=== PATIENT | male | born 1990 | race Caucasian/White ===

== ENCOUNTER 2020-05-11 10:04 | Inpatient (IN) | payer OTHER ==
[~2020-05-11] VITALS: Ht 177.8 cm; Wt 77.3 kg
[2020-05-11 10:37] LABS: BASOPHILS % (AUTO) 0.3 % (0.0-2.0); EOSINOPHILS % (AUTO) 0.7 % (1.0-6.0); HEMATOCRIT 46.9 % (41-53); HEMOGLOBIN 15.7 g/dL (13.5-17.5); LYMPHOCYTES # (AUTO) 1.7 K/uL (1.0-4.8); MEAN CORPUSCULAR HEMOGLOBIN 28.9 pg (26.0-34.0); MEAN CORPUSCULAR HGB CONC 33.5 G/dL (31.0-37.0); MEAN CORPUSCULAR VOLUME 86 fL (80-100); MONOCYTES # (AUTO) 0.6 K/uL (0.1-1.0); MONOCYTES % (AUTO) 6.8 % (2.0-9.0); NEUTROPHILS # (AUTO) 6.1 K/uL (1.8-7.7); NEUTROPHILS % (AUTO) 72.2 % (40.0-70.0); PLATELET COUNT (AUTO) 210 K/uL (150-450); RED BLOOD CELL COUNT(AUTO) 5.43 MIL/uL (4.50-5.90); RED CELL DISTRIBUTION WIDTH 14.6 % (11.5-14.5)
[2020-05-11 10:50] LABS: COVID AG,FIA SOURCE NASOPHARYNGEAL
[2020-05-11] MEDS ORDERED: 0.9% SODIUM CHLORIDE 10 ML SYRINGE IVP PRN (11:00)
[2020-05-11] MEDS ORDERED: ACETAMINOPHEN 325 MG TABLET PO PRN (11:00)
[2020-05-11] MEDS ORDERED: ONDANSETRON HCL 4 MG/2 ML VIAL IVP PRN (11:00)
[2020-05-11 11:02] LABS: ANION GAP 9 mmol/L (8-16); CALCIUM, TOTAL 9.3 mg/dL (8.8-10.5); CARBON DIOXIDE 31 mmol/L (22-29); CHLORIDE 103 mmol/L (98-107); CREATININE 1.11 mg/dL (0.60-1.30); GLOMERULAR FILTR. RATE CALC > 60 mL/min (>60); GLUCOSE,RANDOM 92 mg/dL (70-110); POTASSIUM 3.2 mmol/L (3.5-5.1); SODIUM SERUM 143 mmol/L (136-145); UREA NITROGEN, BLOOD 14 mg/dL (7-18)
[2020-05-11 11:14] LABS: ALANINE AMINOTRANSFERASE 16 U/L (12-78); ALBUMIN 4.5 g/dL (3.4-5.0); ALKALINE PHOSPHATASE 75 U/L (46-116); ASPARTATE AMINOTRANSFERASE 17 U/L (15-37); BILIRUBIN,TOTAL 0.7 mg/dL (0.1-1.0); TOTAL PROTEIN, SERUM 8.3 g/dL (6.4-8.2)
[2020-05-11] MEDS ORDERED: POTASSIUM CHLORIDE 20 MEQ ER TABLET PO ONE (11:45)
[2020-05-11 12:32] VITALS: BP 130/71
[2020-05-11] MEDS ORDERED: POTASSIUM CHL 10 MEQ/WATER 50 ML IV PRN (13:30)
[2020-05-11] MEDS ORDERED: POTASSIUM CHLORIDE 20 MEQ ER TABLET PO PRN (13:30)
[2020-05-11] MEDS ORDERED: LORazepam 2 MG/ML VIAL IVP PRN (13:30)
[2020-05-11] MEDS ORDERED: ACETAMINOPHEN/CODEINE 300-15 MG TABLET PO PRN (13:30)
[2020-05-11] MEDS ORDERED: DICYCLOMINE HCL 10 MG CAPSULE PO PRN (13:30)
[2020-05-11] MEDS ORDERED: LOPERAMIDE HCL 2 MG CAPSULE PO PRN (13:30)
[2020-05-11] MEDS ORDERED: METOCLOPRAMIDE HCL 5 MG/ML 2 ML VIAL IVP PRN (13:30)
[2020-05-11] MEDS ORDERED: IBUPROFEN 400 MG TABLET PO PRN (14:30)
[2020-05-11 20:26] VITALS: BP 121/92
[2020-05-11] MEDS ORDERED: TEMAZEPAM 15 MG CAPSULE PO SCH (21:00)
[2020-05-12 03:45] VITALS: BP 126/68
== END 2020-05-12 07:00 | disposition left against medical advice (07) | DRG 897 ==
LOC: EMS 10:13 → 6S 11:14
PROVIDERS: ADMIT Internal Medicine; ATTEND Internal Medicine
DX: F13.139 Sedative, hypnotic or anxiolytic abuse with withdrawal, unspecified (principal); E87.6 Hypokalemia; F41.9 Anxiety disorder, unspecified; Z53.29 Procedure and treatment not carried out because of patient's decision for other reasons; Z20.822 Contact with and (suspected) exposure to COVID-19
CPT/HCPCS: 87426; 99285; G0480

== ENCOUNTER 2020-05-12 16:17 | Inpatient (IN) | payer OTHER ==
[~2020-05-12] VITALS: Ht 185.4 cm; Wt 77.3 kg
[2020-05-12] MEDS ORDERED: ACETAMINOPHEN 325 MG TABLET PO PRN ×2 (17:15→18:45)
[2020-05-12 17:23] LABS: AMPHET/METH SCREEN,URINE NEGATIVE (NEGATIVE); BARBITURATE SCREEN, URINE NEGATIVE (NEGATIVE); BENZODIAZEPINES SCREEN,URINE POSITIVE (NEGATIVE); CANNABINOID SCREEN,URINE POSITIVE (NEGATIVE); COCAINE SCREEN,URINE NEGATIVE (NEGATIVE); METHADONE SCREEN, URINE NEGATIVE (NEGATIVE); OPIATE SCREEN,URINE NEGATIVE (NEGATIVE)
[2020-05-12 17:28] LABS: PHENCYCLIDINE SCREEN,URINE NEGATIVE (NEGATIVE)
[2020-05-12 18:32] VITALS: BP 114/87
[2020-05-12] MEDS ORDERED: ALBUTEROL SULFATE 2.5 MG/0.5 ML NEB SOLUTION NEB PRN (18:45)
[2020-05-12] MEDS ORDERED: ONDANSETRON HCL 4 MG/2 ML VIAL IVP PRN (18:45)
[2020-05-12] MEDS ORDERED: 0.9% SODIUM CHLORIDE 10 ML SYRINGE IVP PRN (18:45)
[2020-05-12] MEDS ORDERED: DOCUSATE SODIUM 100 MG CAPSULE PO PRN (18:45)
[2020-05-12] MEDS ORDERED: IPRATROPIUM BROMIDE 0.5 MG/2.5 ML NEB SOLUTION NEB PRN (18:45)
[2020-05-12] MEDS ORDERED: BISACODYL 10 MG RECTAL RECTAL SUPPOSITORY PR PRN (18:45)
[2020-05-12 19:50] VITALS: BP 130/74
[2020-05-12] MEDS: FAMOTIDINE 20 MG TABLET PO SCH (20:18)
[2020-05-13 04:41] VITALS: BP 113/63
[2020-05-13 08:08] VITALS: BP 120/74
[2020-05-13] MEDS: FAMOTIDINE 20 MG TABLET PO SCH (08:18)
[2020-05-13] MEDS ORDERED: MULTIVITAMINS WITH MINERALS, THERAPEUTIC TABLET PO SCH (09:00)
[2020-05-13] MEDS ORDERED: THIAMINE 100 MG TABLET PO SCH (09:00)
[2020-05-13] MEDS ORDERED: FOLIC ACID 1 MG TABLET PO SCH (09:00)
== END 2020-05-13 14:45 | DRG 897 ==
LOC: EMS 16:17 → 6S 17:03
PROVIDERS: ADMIT Internal Medicine; ATTEND Internal Medicine
DX: F13.239 Sedative, hypnotic or anxiolytic dependence with withdrawal, unspecified (principal)
CPT/HCPCS: 99285

== ENCOUNTER 2020-05-21 09:36 | Inpatient (IN) | payer OTHER ==
[~2020-05-21] VITALS: Ht 177.8 cm; Wt 81.8 kg
[2020-05-21] MEDS ORDERED: ACETAMINOPHEN 325 MG TABLET PO PRN ×2 (10:00→15:15)
[2020-05-21 10:24] LABS: COVID AG,FIA SOURCE NASOPHARYNGEAL
[2020-05-21 11:48] VITALS: BP 130/82
[2020-05-21] MEDS ORDERED: ALBUTEROL SULFATE 2.5 MG/0.5 ML NEB SOLUTION NEB PRN (15:15)
[2020-05-21] MEDS ORDERED: IPRATROPIUM BROMIDE 0.5 MG/2.5 ML NEB SOLUTION NEB PRN (15:15)
[2020-05-21] MEDS ORDERED: HYDROCODONE/ACETAMINOPHEN 5-325 MG TABLET PO PRN (15:15)
[2020-05-21] MEDS ORDERED: BISACODYL 10 MG RECTAL RECTAL SUPPOSITORY PR PRN (15:15)
[2020-05-21] MEDS ORDERED: ONDANSETRON HCL 4 MG/2 ML VIAL IVP PRN (15:15)
[2020-05-21] MEDS ORDERED: MAGNESIUM HYDROXIDE SUSPENSION 30 ML UDCUP PO PRN (15:15)
[2020-05-21] MEDS ORDERED: MORPHINE SULFATE 2 MG/ML SYRINGE IVP PRN (15:15)
[2020-05-21 15:45] LABS: BASOPHILS % (AUTO) 0.6 % (0.0-2.0); EOSINOPHILS % (AUTO) 0.2 % (1.0-6.0); HEMATOCRIT 45.8 % (41-53); HEMOGLOBIN 15.5 g/dL (13.5-17.5); LYMPHOCYTES # (AUTO) 2.5 K/uL (1.0-4.8); LYMPHOCYTES % (AUTO) 41.1 % (22.0-44.0); MEAN CORPUSCULAR HEMOGLOBIN 28.8 pg (26.0-34.0); MEAN CORPUSCULAR HGB CONC 33.7 G/dL (31.0-37.0); MEAN CORPUSCULAR VOLUME 86 fL (80-100); MONOCYTES # (AUTO) 0.6 K/uL (0.1-1.0); MONOCYTES % (AUTO) 9.9 % (2.0-9.0); NEUTROPHILS # (AUTO) 2.9 K/uL (1.8-7.7); NEUTROPHILS % (AUTO) 48.2 % (40.0-70.0); PLATELET COUNT (AUTO) 281 K/uL (150-450); RED BLOOD CELL COUNT(AUTO) 5.36 MIL/uL (4.50-5.90); RED CELL DISTRIBUTION WIDTH 14.4 % (11.5-14.5)
[2020-05-21] MEDS: HEPARIN SODIUM,PORCINE 5,000 UNITS/ML VIAL SQ SCH ×2 (15:56→23:55)
[2020-05-21 15:59] LABS: ANION GAP 8 mmol/L (8-16); CALCIUM, TOTAL 9.6 mg/dL (8.8-10.5); CARBON DIOXIDE 31 mmol/L (22-29); CHLORIDE 101 mmol/L (98-107); CREATININE 0.94 mg/dL (0.60-1.30); GLOMERULAR FILTR. RATE CALC > 60 mL/min (>60); GLUCOSE,RANDOM 99 mg/dL (70-110); POTASSIUM 3.4 mmol/L (3.5-5.1); SODIUM SERUM 140 mmol/L (136-145); UREA NITROGEN, BLOOD 11 mg/dL (7-18)
[2020-05-21 16:02] LABS: ALANINE AMINOTRANSFERASE 19 U/L (12-78); ALBUMIN 4.4 g/dL (3.4-5.0); ALKALINE PHOSPHATASE 80 U/L (46-116); ASPARTATE AMINOTRANSFERASE 14 U/L (15-37); BILIRUBIN,TOTAL 0.7 mg/dL (0.1-1.0); TOTAL PROTEIN, SERUM 8.2 g/dL (6.4-8.2)
[2020-05-21 17:41] LABS: AMPHET/METH SCREEN,URINE POSITIVE (NEGATIVE); BARBITURATE SCREEN, URINE NEGATIVE (NEGATIVE); BENZODIAZEPINES SCREEN,URINE NEGATIVE (NEGATIVE); CANNABINOID SCREEN,URINE POSITIVE (NEGATIVE); COCAINE SCREEN,URINE NEGATIVE (NEGATIVE); METHADONE SCREEN, URINE NEGATIVE (NEGATIVE); OPIATE SCREEN,URINE NEGATIVE (NEGATIVE)
[2020-05-21 17:42] LABS: PHENCYCLIDINE SCREEN,URINE NEGATIVE (NEGATIVE)
[2020-05-21 19:57] VITALS: BP 135/95
[2020-05-21] MEDS: DOCUSATE SODIUM 100 MG CAPSULE PO SCH (20:37)
[2020-05-21 23:08] VITALS: BP 152/100
[2020-05-21] MEDS ORDERED: LORazepam 2 MG/ML VIAL IM ONE (23:15)
[2020-05-21] MEDS: ZOLPIDEM TARTRATE 5 MG TABLET PO PRN (23:20)
[2020-05-22 04:15] VITALS: BP 154/100
[2020-05-22 07:57] VITALS: BP 144/98
[2020-05-22] MEDS: HEPARIN SODIUM,PORCINE 5,000 UNITS/ML VIAL SQ SCH ×3 (08:00→23:23)
[2020-05-22] MEDS: DOCUSATE SODIUM 100 MG CAPSULE PO SCH ×2 (09:00→20:35)
[2020-05-22] MEDS ORDERED: POTASSIUM CHLORIDE 20 MEQ ER TABLET PO ONE (22:45)
[2020-05-22] MEDS: ZOLPIDEM TARTRATE 5 MG TABLET PO PRN (22:45)
[2020-05-23] MEDS: HEPARIN SODIUM,PORCINE 5,000 UNITS/ML VIAL SQ SCH ×2 (08:00→16:00)
[2020-05-23 08:12] VITALS: BP 132/78
[2020-05-23] MEDS: DOCUSATE SODIUM 100 MG CAPSULE PO SCH ×2 (08:18→19:59)
[2020-05-23] MEDS: ZOLPIDEM TARTRATE 5 MG TABLET PO PRN (19:59)
[2020-05-23 20:03] VITALS: BP 131/78
[2020-05-24 05:15] VITALS: BP 125/75
[2020-05-24 06:30] LABS: BASOPHILS % (AUTO) 0.2 % (0.0-2.0); EOSINOPHILS % (AUTO) 0.4 % (1.0-6.0); HEMATOCRIT 46.4 % (41-53); HEMOGLOBIN 16.1 g/dL (13.5-17.5); LYMPHOCYTES # (AUTO) 3.5 K/uL (1.0-4.8); LYMPHOCYTES % (AUTO) 52.8 % (22.0-44.0); MEAN CORPUSCULAR HEMOGLOBIN 29.7 pg (26.0-34.0); MEAN CORPUSCULAR HGB CONC 34.7 G/dL (31.0-37.0); MEAN CORPUSCULAR VOLUME 86 fL (80-100); MONOCYTES # (AUTO) 0.5 K/uL (0.1-1.0); MONOCYTES % (AUTO) 7.2 % (2.0-9.0); NEUTROPHILS # (AUTO) 2.6 K/uL (1.8-7.7); NEUTROPHILS % (AUTO) 39.4 % (40.0-70.0); PLATELET COUNT (AUTO) 269 K/uL (150-450); RED BLOOD CELL COUNT(AUTO) 5.43 MIL/uL (4.50-5.90); RED CELL DISTRIBUTION WIDTH 14.6 % (11.5-14.5)
[2020-05-24 06:39] LABS: ALANINE AMINOTRANSFERASE 20 U/L (12-78); ALBUMIN 4.4 g/dL (3.4-5.0); ALKALINE PHOSPHATASE 75 U/L (46-116); ANION GAP 10 mmol/L (8-16); ASPARTATE AMINOTRANSFERASE 12 U/L (15-37); BILIRUBIN,TOTAL 0.5 mg/dL (0.1-1.0); CALCIUM, TOTAL 9.4 mg/dL (8.8-10.5); CARBON DIOXIDE 31 mmol/L (22-29); CHLORIDE 101 mmol/L (98-107); CREATININE 1.04 mg/dL (0.60-1.30); GLOMERULAR FILTR. RATE CALC > 60 mL/min (>60); GLUCOSE,RANDOM 90 mg/dL (70-110); POTASSIUM 3.9 mmol/L (3.5-5.1); SODIUM SERUM 142 mmol/L (136-145); TOTAL PROTEIN, SERUM 7.9 g/dL (6.4-8.2); UREA NITROGEN, BLOOD 18 mg/dL (7-18)
[2020-05-24] MEDS: HEPARIN SODIUM,PORCINE 5,000 UNITS/ML VIAL SQ SCH ×3 (08:00→16:00)
[2020-05-24 08:05] VITALS: BP 132/72
[2020-05-24] MEDS: DOCUSATE SODIUM 100 MG CAPSULE PO SCH ×2 (08:29→19:52)
[2020-05-24 19:20] VITALS: BP 144/83
[2020-05-24] MEDS: ZOLPIDEM TARTRATE 5 MG TABLET PO PRN (23:58)
[2020-05-25 04:30] VITALS: BP 128/65
[2020-05-25] MEDS: DOCUSATE SODIUM 100 MG CAPSULE PO SCH (07:27)
[2020-05-25] MEDS: HEPARIN SODIUM,PORCINE 5,000 UNITS/ML VIAL SQ SCH (07:28)
[2020-05-25 08:43] VITALS: BP 142/98
== END 2020-05-25 13:00 | DRG 885 ==
LOC: EMS 09:36 → 6S 11:08
PROVIDERS: ADMIT Hospitalist; ATTEND Hospitalist
DX: F33.2 Major depressive disorder, recurrent severe without psychotic features (principal); R45.851 Suicidal ideations; F29 Unspecified psychosis not due to a substance or known physiological condition; E87.6 Hypokalemia; F15.90 Other stimulant use, unspecified, uncomplicated; Z20.822 Contact with and (suspected) exposure to COVID-19; F41.9 Anxiety disorder, unspecified
CPT/HCPCS: 80053; 80307; 85025; 87426; 99285; J1644; J2060